=== PATIENT | female | born 1965 | race Caucasian/White ===

== ENCOUNTER 2018-08-05 04:01 | Emergency (ER) | payer OTHER ==
[~2018-08-05] VITALS: Ht 160 cm; Wt 81.7 kg
[~2018-08-05 04:01] MED LIST: AMITRIPTYLINE H25 M2 PO; BENADRYL25 MG PO; BUSPIRONE HCL10 MG PO; CARAFATE 1 GM TA1 G1 PO; LIORESAL 10 MG10 MG PO; NEURONTIN600 MG PO; NEXIUM40 MG PO; ONDANSETRON HCL4 M2 PO; PERCOCET 5-3251 EACH PO; REQUIP XL2 MG PO; SINGULAIR 10 MG10 M1 PO; VENLAFAXIN75 MG/1 T2 PO; VISTARIL 25 MG25 M1 PO; ZANTAC 150MG T150 MG PO
[2018-08-05] MEDS ORDERED: LOSARTAN (04:15)
[2018-08-05] MEDS ORDERED: BUPROPION (04:15)
[2018-08-05 05:47] VITALS: BP 142/80
== END 2018-08-05 05:40 | disposition home or self-care (01) ==
LOC: M.ERS 04:01
DX: S91.202A Unspecified open wound of left great toe with damage to nail, initial encounter (principal); I10 Essential (primary) hypertension; E11.9 Type 2 diabetes mellitus without complications; Z88.8 Allergy status to other drugs, medicaments and biological substances; Z88.0 Allergy status to penicillin; Z96.653 Presence of artificial knee joint, bilateral; Z88.1 Allergy status to other antibiotic agents; Z98.890 Other specified postprocedural states; W22.8XXA Striking against or struck by other objects, initial encounter; Y92.89 Other specified places as the place of occurrence of the external cause; Y93.89 Activity, other specified; Y99.8 Other external cause status

== ENCOUNTER 2018-10-12 14:53 | Emergency (ER) | payer OTHER ==
[~2018-10-12] VITALS: Ht 160 cm; Wt 86.2 kg
[~2018-10-12 14:53] MED LIST changes: +BUPROPION; +LOSARTAN
[2018-10-12] MEDS ORDERED: ACYCLOVIR 400400 MG PO (15:11)
[2018-10-12] MEDS ORDERED: DULERA 200 MCG/13 GM INH (15:12)
[2018-10-12] MEDS ORDERED: FLONASE 0.05%50 MCG NASAL (15:12)
[2018-10-12] MEDS ORDERED: LIORESAL 10 MG10 MG PO (15:12)
[2018-10-12] MEDS ORDERED: LASIX 20 MG TAB20 MG PO (15:12)
[2018-10-12] MEDS ORDERED: NEURONTIN300 MG PO (15:13)
[2018-10-12] MEDS ORDERED: HYDROXYZINE HCL25 M1 PO (15:14)
[2018-10-12] MEDS ORDERED: IPRATROPIUM BRO30 ML INH (15:15)
[2018-10-12] MEDS ORDERED: NEXIUM40 MG PO (15:16)
[2018-10-12] MEDS ORDERED: PROAIR HFA8.5 GM PO (15:17)
[2018-10-12] MEDS ORDERED: TRAZODONE HCL50 MG PO (15:18)
[2018-10-12] MEDS ORDERED: SPIRIVA18 MCG INH (15:18)
[2018-10-12] MEDS ORDERED: VOLTAREN GEL 1100 G2 TOP (15:19)
[2018-10-12] MEDS ORDERED: ZANTAC 150MG T150 MG PO (15:19)
[2018-10-12] MEDS ORDERED: WELLBUTRIN 75 M75 M1 PO (15:19)
[2018-10-12] MEDS ORDERED: ONDANSETRON HCL4 M2 PO (15:20)
[2018-10-12] MEDS ORDERED: HYDROCHLOROTH12.5 M1 PO (15:32)
[2018-10-12] MEDS ORDERED: BENICAR20 MG PO (15:32)
[2018-10-12] MEDS ORDERED: PREDNISONE 10 M10 M1 PO (15:33)
[2018-10-12 15:57] LABS: ABSOLUTE LYMPHOCYTES 3.1 thou/uL (0.8-5.3); ABSOLUTE MONOCYTES 0.9 thou/uL (0.0-1.2); ABSOLUTE NEUTROPHILS 3.6 thou/uL (1.6-8.1); BASOPHILS 0.4 %; EOSINOPHILS 0.4 %; HEMATOCRIT 33.4 % (37.0-47.0); HEMOGLOBIN 11.2 gm/dL (12.0-15.0); LYMPHOCYTES 39.9 %; MCH 33.7 pg (26.0-34.0); MCHC 33.5 g/dL (28.0-37.0); MCV 100.4 fL (80.0-100.0); MPV 7.7 fl. (7.2-11.1); NUCLEATED RBCS 0 /100WBC; PLATELET COUNT* 343 thou/uL (150-400); POLYS 47.3 %; RBC 3.33 mil/uL (4.20-5.00); RDW-CV 14.3 % (10.5-14.5); WBC 7.7 thou/uL (4.0-11.0)
[2018-10-12 16:06] LABS: CALCIUM 8.1 mg/dL (8.5-10.1); CREATININE 1.5 mg/dL (0.6-1.3)
[2018-10-12 16:10] LABS: TOTAL BILIRUBIN 0.2 mg/dL (<0.1-1.0); TOTAL PROTEIN 6.8 g/dL (6.4-8.2)
[2018-10-12] MEDS ORDERED: PERCOCET 7.5-31 EACH PO (17:29)
[2018-10-12 17:45] VITALS: BP 135/69
== END 2018-10-12 17:46 | disposition home or self-care (01) ==
LOC: M.ERS 14:53
PROVIDERS: Personal Emergency Response Attendant
DX: G89.29 Other chronic pain (principal); M54.5 Low back pain; I10 Essential (primary) hypertension; E11.9 Type 2 diabetes mellitus without complications; Z88.1 Allergy status to other antibiotic agents; Z88.0 Allergy status to penicillin; Z88.7 Allergy status to serum and vaccine; Z88.5 Allergy status to narcotic agent; Z91.012 Allergy to eggs; Z88.8 Allergy status to other drugs, medicaments and biological substances; Z90.710 Acquired absence of both cervix and uterus; Z98.890 Other specified postprocedural states

== ENCOUNTER 2018-10-21 19:15 | Emergency (ER) | payer OTHER ==
[~2018-10-21] VITALS: Ht 160 cm; Wt 86.2 kg
[~2018-10-21 19:15] MED LIST changes: +ACYCLOVIR 400400 MG PO; +BENICAR20 MG PO; +DULERA 200 MCG/13 GM INH; +FLONASE 0.05%50 MCG NASAL; +HYDROCHLOROTH12.5 M1 PO; +HYDROXYZINE HCL25 M1 PO; +IPRATROPIUM BRO30 ML INH; +LASIX 20 MG TAB20 MG PO; +NEURONTIN300 MG PO; +PERCOCET 7.5-31 EACH PO; +PREDNISONE 10 M10 M1 PO; +PROAIR HFA8.5 GM PO; +SPIRIVA18 MCG INH; +TRAZODONE HCL50 MG PO; +VOLTAREN GEL 1100 G2 TOP; +WELLBUTRIN 75 M75 M1 PO
[2018-10-21 19:40] LABS: ABSOLUTE LYMPHOCYTES 3.2 thou/uL (0.8-5.3); ABSOLUTE MONOCYTES 1.4 thou/uL (0.0-1.2); ABSOLUTE NEUTROPHILS 6.4 thou/uL (1.6-8.1); BASOPHILS 0.2 %; EOSINOPHILS 0.3 %; HEMATOCRIT 33.5 % (37.0-47.0); HEMOGLOBIN 11.3 gm/dL (12.0-15.0); LYMPHOCYTES 29.2 %; MCH 34.3 pg (26.0-34.0); MCHC 33.8 g/dL (28.0-37.0); MCV 101.6 fL (80.0-100.0); MONOCYTES 12.3 %; MPV 8.1 fl. (7.2-11.1); NUCLEATED RBCS 0 /100WBC; PLATELET COUNT* 360 thou/uL (150-400); RBC 3.29 mil/uL (4.20-5.00); RDW-CV 14.8 % (10.5-14.5); WBC 11.1 thou/uL (4.0-11.0)
[2018-10-21 19:52] LABS: CALCIUM 8.6 mg/dL (8.5-10.1); CREATININE 1.6 mg/dL (0.6-1.3); POTASSIUM 3.1 mmol/L (3.5-5.1)
[2018-10-21 19:56] LABS: ALBUMIN 3.2 g/dL (3.4-5.0); TOTAL BILIRUBIN 0.2 mg/dL (<0.1-1.0); TOTAL PROTEIN 7.1 g/dL (6.4-8.2)
[2018-10-21 21:11] LABS: URINE BILIRUBIN NEGATIVE (Negative); URINE BLOOD NEGATIVE (Negative); URINE CLARITY CLEAR; URINE COLOR YELLOW; URINE GLUCOSE-RANDOM NEGATIVE (Negative); URINE KETONES NEGATIVE (Negative); URINE LEUKOCYTES-REFLEX NEGATIVE (Negative); URINE NITRITE-REFLEX NEGATIVE (Negative); URINE PROTEIN NEGATIVE (Negative); URINE UROBILINOGEN 0.2 E.U./dl (0.2-1.0)
[2018-10-21 21:18] LABS: AMP/METHAMP Negative (Negative); BARBITURATES Negative (Negative); BENZODIAZEPINES Negative (Negative); COCAINE Negative (Negative); METHADONE Negative (Negative); OPIATES POSITIVE (Negative); PCP Negative (Negative); THC Negative (Negative)
[2018-10-21] MEDS ORDERED: PERCOCET 7.5-31 EACH PO (22:36)
[2018-10-21 22:46] VITALS: BP 136/81
--- NOTE | 2018-10-22 10:21 | EKG ---
[place] [address] ELECTROCARDIOGRAM REPORT Name: KESHAV PINK Room: [facility]#: [id number] Admission: 10/21/18 Attend Phys: Discharge: 10/21/18 Date of : 61 Report #: [id number] THIS REPORT FOR: //name// [facility] ED Test Date: 2018-10-21 Test Time: 20:20:19 Pat Name: KESHAV PINK Department: Room: Gender: F Linking Machine Operator: : 1965 Requested By: Camila Vazquez Order Number: [id number] MD: Rc Mulligan Measurements Intervals [place] Rate: 87 P: -37 WV: 134 QRS: -14 QRSD: 100 T: 12 QT: 373 QTc: 449 Interpretive Statements Sinus rhythm No previous ECG available for comparison Electronically Signed On 10-22-2018 10:21:01 CDT by Rc Mulligan [email or web address] <ELECTRONICALLY SIGNED> By: Rc Mulligan MD, [facility] 10/22/18 1021 19 19 Rc Mulligan MD, FACC /EPI
== END 2018-10-21 22:47 | disposition home or self-care (01) ==
LOC: M.ERS 19:15
PROVIDERS: Emergency Medicine
DX: M54.5 Low back pain (principal); M25.571 Pain in right ankle and joints of right foot; R60.0 Localized edema; I10 Essential (primary) hypertension; E11.9 Type 2 diabetes mellitus without complications; Z98.890 Other specified postprocedural states; Z90.710 Acquired absence of both cervix and uterus; Z88.0 Allergy status to penicillin; Z88.1 Allergy status to other antibiotic agents; Z88.7 Allergy status to serum and vaccine; Z88.8 Allergy status to other drugs, medicaments and biological substances; Z91.012 Allergy to eggs; Z79.899 Other long term (current) drug therapy

== ENCOUNTER 2018-11-18 17:36 | Emergency (ER) | payer OTHER ==
[~2018-11-18] VITALS: Ht 160 cm; Wt 86.2 kg
[2018-11-18] MEDS ORDERED: [UNRECOGNIZED DRUG - OTHER] (17:49)
[2018-11-18] MEDS ORDERED: QVAR REDIHALE10.6 G1 INH (17:50)
[2018-11-18] MEDS ORDERED: TRAMADOL 50 MG50 MG PO (17:50)
[2018-11-18 18:45] LABS: ABSOLUTE EOSINOPHILS 0.1 thou/uL (0.0-0.7); ABSOLUTE LYMPHOCYTES 1.9 thou/uL (0.8-5.3); ABSOLUTE MONOCYTES 0.7 thou/uL (0.0-1.2); ABSOLUTE NEUTROPHILS 3.3 thou/uL (1.6-8.1); BASOPHILS 0.3 %; EOSINOPHILS 1.1 %; HEMATOCRIT 30.7 % (37.0-47.0); HEMOGLOBIN 10.2 gm/dL (12.0-15.0); LYMPHOCYTES 31.2 %; MCH 34.2 pg (26.0-34.0); MCHC 33.4 g/dL (28.0-37.0); MCV 102.5 fL (80.0-100.0); MONOCYTES 11.8 %; MPV 8.3 fl. (7.2-11.1); NUCLEATED RBCS 0 /100WBC; PLATELET COUNT* 257 thou/uL (150-400); POLYS 55.6 %; RBC 2.99 mil/uL (4.20-5.00); RDW-CV 14.5 % (10.5-14.5)
[2018-11-18 18:53] LABS: ANION GAP 6 mmol/L (7-16); BUN 15 mg/dL (7-18); CALCIUM 7.9 mg/dL (8.5-10.1); CHLORIDE 106 mmol/L (98-107); CO2 29 mmol/L (21-32); GLUCOSE 80 mg/dL (70-99); SODIUM 141 mmol/L (136-145)
[2018-11-18 18:54] LABS: POTASSIUM 2.7 mmol/L (3.5-5.1)
[2018-11-18 19:05] LABS: ALBUMIN 2.9 g/dL (3.4-5.0); ALKALINE PHOSPHATASE 175 U/L (46-116); SGOT 26 U/L (15-37); SGPT 56 U/L (30-65); TOTAL BILIRUBIN 0.1 mg/dL (<0.1-1.0); TOTAL PROTEIN 6.3 g/dL (6.4-8.2); TROPONIN-I LEVEL <0.06 ng/mL (<0.06)
[2018-11-18] MEDS ORDERED: GLUTOSE GEL 1515 G1 PO (19:19)
[2018-11-18] MEDS ORDERED: HYDROXYZINE HCL25 M2 PO (19:21)
[2018-11-18 20:54] VITALS: BP 144/86
--- NOTE | 2018-11-19 16:12 | EKG ---
[place] [address] ELECTROCARDIOGRAM REPORT Name: JOESPHTHAIKESHAV Jessica [id number] Admission: 11/18/18 Attend Phys: Discharge: 11/18/18 Date of : 61 Report #: [id number] THIS REPORT FOR: //name// [facility] ED Test Date: 2018-11-18 Test Time: 19:18:37 Pat Name: KESHAV PINK Department: Room: Gender: F Pulmonologist/Intensivist: [place] : 1965 Requested By: Andreia Sena Order Number: [id number] MD: Gautam Caballero Measurements Intervals [place] Rate: 77 P: -15 CO: 152 QRS: -13 QRSD: 104 T: 54 QT: 403 QTc: 457 Interpretive Statements Sinus rhythm Compared to ECG 10/21/2018 20:20:19 No significant changes Electronically Signed On 11-19-2018 16:11:56 CDT by Gautam Caballero [email or web address] <ELECTRONICALLY SIGNED> By: Gautam Caballero MD, [facility] 11/19/18 1611 1918 191 Gautam Caballero MD, FACC /EPI
== END 2018-11-18 20:56 | disposition home or self-care (01) ==
LOC: M.ERS 17:36
PROVIDERS: Nurse Practitioner Family
DX: E87.6 Hypokalemia (principal); I12.9 Hypertensive chronic kidney disease with stage 1 through stage 4 chronic kidney disease, or unspecified chronic kidney disease; E11.22 Type 2 diabetes mellitus with diabetic chronic kidney disease; N18.9 Chronic kidney disease, unspecified; M79.602 Pain in left arm; E11.649 Type 2 diabetes mellitus with hypoglycemia without coma; Z98.51 Tubal ligation status; Z90.710 Acquired absence of both cervix and uterus; Z79.899 Other long term (current) drug therapy; Z88.1 Allergy status to other antibiotic agents; Z88.0 Allergy status to penicillin; Z88.5 Allergy status to narcotic agent; Z88.7 Allergy status to serum and vaccine; Z91.012 Allergy to eggs

== ENCOUNTER 2019-04-11 15:14 | Observation (INO) | payer OTHER ==
[~2019-04-11] VITALS: Ht 160 cm; Wt 82.1 kg
[~2019-04-11 15:14] MED LIST changes: +GLUTOSE GEL 1515 G1 PO; +HYDROXYZINE HCL25 M2 PO; +QVAR REDIHALE10.6 G1 INH; +TRAMADOL 50 MG50 MG PO; +[UNRECOGNIZED DRUG - OTHER]
[2019-04-11 15:18] VITALS: BP 141/81
--- NOTE | 2019-04-11 16:25 | NUR ---
PT BROUGHT BACK TO ED ROOM FROM WAITING AREA.
--- NOTE | 2019-04-11 17:00 | NUR ---
DURING ASSESSMENT, PT ASKED NURSE IF SHE COULD GET A BREATHING TREATMENT BECAUSE "I CAN'T SEEM TO CATCH MY BREATH RIGHT NOW". PT RESPIRATIONS EVEN AND UNLABORED. O2 SAT 99% ON ROOM AIR.
[2019-04-11 17:20] LABS: ABSOLUTE EOSINOPHILS 0.1 thou/uL (0.0-0.7); ABSOLUTE LYMPHOCYTES 1.9 thou/uL (0.8-5.3); ABSOLUTE MONOCYTES 0.7 thou/uL (0.0-1.2); ABSOLUTE NEUTROPHILS 4.4 thou/uL (1.6-8.1); BASOPHILS 0.3 %; EOSINOPHILS 0.8 %; HEMATOCRIT 33.4 % (37.0-47.0); LYMPHOCYTES 27.2 %; MCH 32.7 pg (26.0-34.0); MCHC 32.9 g/dL (28.0-37.0); MCV 99.2 fL (80.0-100.0); MONOCYTES 10.3 %; MPV 8.7 fl. (7.2-11.1); NUCLEATED RBCS 0 /100WBC; PLATELET COUNT* 300 thou/uL (150-400); POLYS 61.4 %; RBC 3.37 mil/uL (4.20-5.00); RDW-CV 14.9 % (10.5-14.5); WBC 7.1 thou/uL (4.0-11.0)
[2019-04-11 17:30] LABS: CALCIUM 8.3 mg/dL (8.5-10.1); CREATININE 1.3 mg/dL (0.6-1.3); POTASSIUM 3.4 mmol/L (3.5-5.1)
[2019-04-11 17:34] LABS: TOTAL BILIRUBIN 0.2 mg/dL (<0.1-1.0); TOTAL PROTEIN 7.3 g/dL (6.4-8.2)
--- NOTE | 2019-04-11 18:57 | NUR ---
REPORT GIVEN TO BRODY ASHER WHO IS TO ASSUME PT CARE AT THIS TIME.
--- NOTE | 2019-04-11 20:18 | NUR ---
PT VERY ARGUMENTATIVE WHILE STAFF ATTEMPTING TO START IV ACCESS. PT TELLING STAFF WHERE TO INSERT IV. PT INFORMED THAT AREAS THAT SHE WANTS IV STARTED ARE NOT SUFFICIENT FOR IV ACCESS. THIS NURSE SAT AT PATIENT'S BEDSIDE AND LISTENED TO PATIENT'S CONCERNS FOR IV INSERTION. PATIENT AGREED TO ALLOW ME TO INSERT IV IN RIGHT HAND. PATIENT THEN STARTED YELLING AND CURSING AT STAFF. PATIENT ASKED TO NOT USE DISRESPECTFUL LANGUAGE TOWARDS STAFF AND I ONCE AGAIN EXPLAINED THAT STAFF IS HERE TO HELP HER AND TO TAKE CARE OF HER.
[2019-04-11 20:20] VITALS: BP 144/82
[2019-04-11 20:32] LABS: URINE BILIRUBIN NEGATIVE (Negative); URINE BLOOD NEGATIVE (Negative); URINE CLARITY SL CLOUDY; URINE COLOR YELLOW; URINE GLUCOSE-RANDOM NEGATIVE (Negative); URINE KETONES NEGATIVE (Negative); URINE NITRITE-REFLEX NEGATIVE (Negative); URINE PROTEIN NEGATIVE (Negative); URINE UROBILINOGEN 0.2 E.U./dl (0.2-1.0)
[2019-04-11 20:33] LABS: URINE LEUKOCYTES-REFLEX 2+ (Negative)
[2019-04-11 20:41] LABS: MUCUS 4-6 Moderate strn/LPF (None Seen); SQUAMOUS >10 Many /LPF (0-3)
[2019-04-11 20:42] LABS: BACTERIA-REFLEX >30 Many /HPF (None Seen); CRYSTALS None Seen /LPF (None Seen); HYALINE CASTS 0-3 Few /LPF (None Seen); URINE RBC 0-2 Rare /HPF (0-2); URINE WBC-REFLEX 0-5 Rare /HPF (0-5)
[2019-04-11] MEDS ORDERED: SENNA PLUS TAB1 EACH PO (21:03)
[2019-04-11] MEDS ORDERED: POTASSIUM20 PO (21:03)
[2019-04-11] MEDS ORDERED: OLMESARTAN MEDO20 MG PO (21:20)
[2019-04-11] MEDS ORDERED: KEFLEX500 M2 PO (21:25)
[2019-04-11] MEDS ORDERED: KEFLEX500 M1 PO (21:27)
[2019-04-11 22:00] VITALS: BP 156/83
[2019-04-12] VITALS: BP 113/81
--- NOTE | 2019-04-12 03:31 | NUR ---
RECEIVED REPORT FROM IT PORTFOLIO MANAGERBRODY ASHER AT 1954. PT ARRIVED TO UNIT VIA BED AT 2019. PT AAOX4. ORIENTED TO ROOM AND CALL LIGHT. EMBOSSING UNIT OPERATOR IN PLACE, TRACING SINUS RHYTHM. PT IRRITABLE AND DEMANDING AND THREATENING TO LEAVE AMA IF MEDICATIONS/CARE NOT PERFORMED ACCORDING TO PATIENT'S EXPECTATIONS. PT EDUCATED ON HIGH FALL PRECAUTIONS. PT REFUSED BED ALARM. THREATENING TO LEAVE AMA IF BED ALARM TURNED ON. PT EDUCATED ON REASON FOR BED ALARM. PT CONTINUED TO REFUSE. CALL LIGHT REMAINS WITHIN REACH. PT AGREED TO USE CALL LIGHT PRIOR TO GETTING OUT OF BED. PRN PAIN MEDICATION ADMINISTERED THIS SHIFT, SEE EMAR FOR DOCUMENTATION.
[2019-04-12 04:00] VITALS: BP 142/70
[2019-04-12 04:58] LABS: ALKALINE PHOSPHATASE 239 U/L (46-116); ANION GAP 12 mmol/L (7-16); BUN 7 mg/dL (7-18); CALCIUM 8.1 mg/dL (8.5-10.1); CHLORIDE 105 mmol/L (98-107); CHOLESTEROL 156 mg/dL (<200); CO2 21 mmol/L (21-32); CREATININE 1.4 mg/dL (0.6-1.3); GLUCOSE 117 mg/dL (70-99); HDL CHOLESTEROL 71 mg/dL (>40); LDL CHOLESTEROL 69 mg/dL (<100); POTASSIUM 3.6 mmol/L (3.5-5.1); SGOT 20 U/L (15-37); SGPT 49 U/L (30-65); SODIUM 138 mmol/L (136-145); TC:HDL 2.2 Ratio (Not establshd); TOTAL BILIRUBIN 0.3 mg/dL (<0.1-1.0); TOTAL PROTEIN 7.1 g/dL (6.4-8.2); TRIGLYCERIDE 82 mg/dL (<150); VLDL 16 mg/dL (<40)
[2019-04-12 05:03] LABS: SERUM ASSESSMENT CLEAR
[2019-04-12 07:26] LABS: HEMATOCRIT 32.9 % (37.0-47.0); HEMOGLOBIN 10.9 gm/dL (12.0-15.0); MCH 32.9 pg (26.0-34.0); MCHC 33.2 g/dL (28.0-37.0); MPV 9.2 fl. (7.2-11.1); RBC 3.32 mil/uL (4.20-5.00); RDW-CV 14.7 % (10.5-14.5); WBC 7.9 thou/uL (4.0-11.0)
[2019-04-12 08:00] VITALS: BP 130/79
[2019-04-12] MEDS ORDERED: WELLBUTRIN 75 M75 M1 PO (10:52)
[2019-04-12 11:48] VITALS: BP 150/69
[2019-04-12] MEDS ORDERED: BACTRIM DS TAB1 EAC1 PO (13:52)
--- NOTE | 2019-04-12 14:47 | EKG ---
[place] [address] ELECTROCARDIOGRAM REPORT Name: KESHAV PINK Room: [address] ADM IN .R.#: [id number] Admission: 04/11/19 Attend Phys: Maritza Bray MD Discharge: Date of : 61 Report #: [id number] THIS REPORT FOR: //name// [facility] ED Test Date: 2019-04-11 Test Time: 16:45:24 Pat Name: KESHAV PINK Department: Room: [facility] Gender: F Motion Picture Set Worker: : 1965 Requested By: Noah Huerta Order Number: [id number] MD: Chacorta Wright Measurements Intervals [place] Rate: 84 P: 40 IN: 171 QRS: -4 QRSD: 104 T: 47 QT: 377 QTc: 446 Interpretive Statements Sinus rhythm Compared to ECG 11/18/2018 19:18:37 No significant changes Electronically Signed On 04-12-2019 14:47:40 WATERPROOF MATERIAL FOLDER by Chacorta Wright [email or web address] <ELECTRONICALLY SIGNED> By: Chacorta Wright MD, [facility] 04/12/19 1447 1645 1645 Chacorta Wright MD, FACC /EPI
[2019-04-12 15:21] VITALS: BP 150/69
--- NOTE | 2019-04-12 16:29 | NUR ---
ORDERS RECEIVED FOR P.T. EVAL AND TREAT. UPON CHECKING UPON PT, NSG REPORTS PT PREPARING TO BE DISCHARGED HOME FROM HOSPITAL.
--- NOTE | 2019-04-12 17:06 | NUR ---
ASSUMED CARE OF PT APPROX 0730. REASSESSMENT COMPLETED CHARTED. MEDICATIONS GIVEN CHARTED. THE PT WAS VERY ANXIOUS. PT DISCONTINUED HER IV THIS AM THAT WAS IN HER RIGHT WRIST, PT STATED,"IT BLEW OUT." I ASKED HER IF SHE MEANT THAT SHE TOOK IT OUT. PT STATED WELL IT WASN'T ANY GOOD, IT WAS IN MY RIGHT WRIST AND I USE MY RIGHT HAND IT WAS IN THE WAY. THE PT WAS WANTING TO HAVE HER DOGS COME TO THE HOSPITAL AND STAY WITH HER FOR THE DURTION OF HER STAY, THE PT STATED,"HER DOGS CAN USE THE RESTROOM ON PUPPY PADS." THE PT WAS EDUCATED ABOUT THE HOSPITALS POLICY. THE PT WAS TOLD THAT SHE WOULD HAVE TO HAVE AN ADULT HERE WITH THE ANIMALS TO BE ABLE TO TAKE BACK HOME AND THEY COULD ONLY BE ABLE TO VISIT IF THEY MET HOSPITAL POLICY. THE PT WAS UNHAPPY AND DEMANED TO SPEAK WITH THE CHARGE NURSE. THE CHARGE NURSE WAS NOTIFIED AND SPOKE TO THE PT. THE PT WAS STILL NOT SATISFIED WITH WHAT SHE WAS TOLD. [facility] AND SHE CONTACTED THE HOSPITAL INTERMEDIATE ACCOUNTANT. THE HOSPITAL INTERMEDIATE ACCOUNTANT SPOKE WITH THE PT ABOUT THE HOSPITALS POLICY ON PETS. THE DR WAS NOTIFIED. THE PT DID NOT MENTION THE PETS FOR THE REMAINDER OF HER STAY. THE PT WAS GIVEN THE DOSE OF PAIN MEDICATION THE PT NORMALLY TAKES AT HOME WITH HER MORNING MEDICATIONS. THE DR WAS IN THE PTS ROOM WHILE MEDICATIONS WERE BEING ADMINISTERED. THE PT ASKED THE DR IF SHE COULD BE ABLE TO HAVE IV PAIN MEDICATION, THE DR TOLD HER SHE WOULD REVIEW HER MEDICATIONS. NEW IV WAS PLACED IN THE PTS LEFT WRIST APPROX 1330. THE NEUROLOGIST SEEN THE PT AND RECOMMENNED THE PT BE SEEN BY AN OUT PT NEUROLOGIST. THE DR PUT IN AN ORDER FOR IV FENTANYL. THE MEDICATION WAS OFFERED TO THE PT AND SHE REFUSED THE MEDICATION STATING,"FENTANYL DOESN'T WORK FOR ME." THE DR WAS NOTIFIED AND THE DR WANTED THE PT TO RESUME ORAL PAIN MEDICATION. THE DR ALSO PUT IN ORDERS FOR THE PT TO BE DISCHARGED AFTER THE NERUOLOGIST SEEN THE PT. I WENT TO DISCUSS THE PENDING DISCHARGE WITH THE PT AND ALSO OFFER THE PT TO TAKE PO PAIN MEDICATION. THE PT STATED SHE DID NOT WANT PO PAIN MEDICATION SHE WANTED TO TAKE IV PAIN MEDICATION. I TOLD HER WHAT THE DR WANTED HER TO TAKE. THE PT THEN ASKED IF COULD SHE SEE THE DIRECTOR OF SERVICES WHILE IN THE HOSPITAL. THE PT WAS EDUCATED THAT SHE WAS NOT HERE FOR A CARDIAC ISSUE AND SHE WOULD HAVE TO SEE HER DIRECTOR OF SERVICES ON AN OUT PT BASIS. I ALSO SPOKE WITH THE PT ABOUT THE RECOMMENDATION OF THE NEUROLOGIST. PT WAS EDUCATED ABOUT CARE AND TOLD THE DR DISCHARGED HER BECAUSE SHE WAS STABLE. SHE GOT VERY ANGRY AND BEGAN TO YELL AT ME DEMANDING TO SPEAK TO SOMEONE ELSE ABOUT BEING ABLE TO STAY IN THE HOSPITAL. KRISTINAN WAS NOTIFIED OF THE PTS CONCERN AND THE DR STATED THAT THE PT WAS NOT ADMITED FOR A CARDIAC ISSUE AND THE PT DID NOT HAVE ANY CARDIAC CONCERNS WHEN SHE WAS ASSESSED IN THE MORNING. THE DR STATED THE PT IS STABLE TO BE DISCHARGED. I WENT TO MY CHARGE NURSE SO I COULD HAVE A WITNESS. THE PT REFUSED TO HAVE DISCHARGE TEACHING COMPLETED, A COPY OF THE PTS DISCHARGE AND MEDICATION INFOMATION FOR HER NEW PRESCRITION WAS GIVEN TO HER. THE PT DISCONTINUED HER IV THAT WAS PLACED IN HER LEFT WRIST. PT WAS REFUSING TO LEAVE. ROD CUP FILLER WAS CALLED. LIZBET GOODRICH, ROD CUP FILLER, NURSE ASSISSANT AND I WERE IN THE ROOM WITH THE PT SHE REFUSED TO SIGN HER DISCHARGE PAPERWORK AGAIN AFTER THE ROD CUP FILLER SUGESTED SHE SHOULD HAVE TEACHING DONE AND SIGN HER PAPERWORK. SHE WAS STILL UPSET ABOUT NOT GETTING IV PAIN MEDICATION AND I EXPLAINED TO HER THE DOCTORS ORDERS, I TOLD HER I WAS NOT GOING TO GO BACK AND FORTH WITH HER ABOUT IT. THE CHARGE NURSE TOLD HER SHE IS BEING DISCHARGED AND SHE NEEDED TO LEAVE. SHE REFUSED TO TAKE A WHEELCHAIR TO HER VEHICLE AND REFUSED TO HAVE AND HELP BY STAFF TO CARRY HER BELONGINGS OUT. THE NURSING ASSISANT WAS WALKING WITH HER TO THE ELEVATOR AND THE ROD CUP FILLER TOLD THE JUVENILE PROBATION OFFICER TO MAKE SURE SHE GOT TO HER VEHICLE SAFTELY. THE PT TURNED AROUND AND STATED,"IM RIGHT HERE IF YOU ARE GOING TO TALK ABOUT ME IM RIGHT HERE." THE ROD CUP FILLER WENT TO SPEAK TO THE PT AND TOLD HER THAT IF SHE WAS NOT ABLE TO LEAVE WITH JUST THE NURSING ASSIANT THEN SHE WAS GOING TO HAVE TO GO WITH HER AND CALL SECURITY. THE PT THEN LEFT WITH THE NURSING ASSISANT AND WAS ESCORTED TO HER VEHICLE APPROX 1645. SHE HAD ALL OF HER BELONGINGS WITH HER.
== END 2019-04-12 16:48 | disposition home or self-care (01) ==
LOC: M.ERS 15:14 → M.TBA-ER 18:44 → M.2W 18:44
PROVIDERS: Emergency Medicine Emergency Medical Services; Personal Emergency Response Attendant; ADMIT Internal Medicine
DX: R42 Dizziness and giddiness (principal); K92.1 Melena; G89.29 Other chronic pain; I10 Essential (primary) hypertension; E11.40 Type 2 diabetes mellitus with diabetic neuropathy, unspecified

== ENCOUNTER 2019-10-02 21:52 | Inpatient (IN) | payer OTHER ==
[~2019-10-02] VITALS: Ht 160 cm; Wt 74.4 kg
[~2019-10-02 21:52] MED LIST changes: +BACTRIM DS TAB1 EAC1 PO; +KEFLEX500 M1 PO; +KEFLEX500 M2 PO; +OLMESARTAN MEDO20 MG PO; +POTASSIUM20 PO; +SENNA PLUS TAB1 EACH PO
[2019-10-02 22:15] VITALS: BP 95/59
[2019-10-02 23:24] LABS: ABSOLUTE LYMPHOCYTES 1.3 thou/uL (0.8-5.3); ABSOLUTE MONOCYTES 0.8 thou/uL (0.0-1.2); ABSOLUTE NEUTROPHILS 4.7 thou/uL (1.6-8.1); BASOPHILS 0.2 %; EOSINOPHILS 0.2 %; HEMATOCRIT 27.2 % (37.0-47.0); HEMOGLOBIN 9.2 gm/dL (12.0-15.0); LYMPHOCYTES 19.4 %; MCH 33.7 pg (26.0-34.0); MCHC 33.9 g/dL (28.0-37.0); MCV 99.4 fL (80.0-100.0); MONOCYTES 11.6 %; MPV 8.1 fl. (7.2-11.1); NUCLEATED RBCS 0 /100WBC; PLATELET COUNT* 342 thou/uL (150-400); POLYS 68.6 %; RBC 2.74 mil/uL (4.20-5.00); RDW-CV 15.5 % (10.5-14.5); WBC 6.9 thou/uL (4.0-11.0)
[2019-10-02 23:34] LABS: CALCIUM 7.6 mg/dL (8.5-10.1); CREATININE 2.9 mg/dL (0.6-1.3)
[2019-10-02 23:36] LABS: POTASSIUM 2.5 mmol/L (3.5-5.1)
[2019-10-02 23:38] LABS: APTT 23.9 Seconds (25.0-31.3); PROTIME 10.1 Seconds (9.20-11.50)
[2019-10-02 23:45] LABS: ALBUMIN 2.9 g/dL (3.4-5.0); TOTAL BILIRUBIN 0.2 mg/dL (<0.1-1.0); TOTAL PROTEIN 6.5 g/dL (6.4-8.2)
--- NOTE | 2019-10-03 00:05 | NUR ---
SYLVIE NOTIFIED UPON PT RETURN FROM CT AND THAT PT IS IN THE RESTROOM
[2019-10-03 04:00] VITALS: BP 118/61
[2019-10-03 05:13] LABS: URINE BILIRUBIN NEGATIVE (Negative); URINE BLOOD 3+ (Negative); URINE CLARITY SL CLOUDY; URINE GLUCOSE-RANDOM NEGATIVE (Negative); URINE KETONES NEGATIVE (Negative); URINE LEUKOCYTES-REFLEX 1+ (Negative); URINE NITRITE-REFLEX NEGATIVE (Negative); URINE PROTEIN 1+ (Negative); URINE UROBILINOGEN 0.2 E.U./dl (0.2-1.0)
[2019-10-03 05:15] LABS: URINE COLOR AMBER
[2019-10-03 05:28] LABS: AMORPHOUS URATES Moderate /LPF (None Seen); BACTERIA-REFLEX >30 Many /HPF (None Seen); CASTS None Seen /LPF (None Seen); MUCUS 4-6 Moderate strn/LPF (None Seen); SQUAMOUS 0-3 Few /LPF (0-3); TRANSITIONAL EPITHEL CELL 0-3 Few /LPF (None Seen); URINE WBC-REFLEX 6-15 Few /HPF (0-5)
[2019-10-03 08:00] VITALS: BP 112/76
[2019-10-03 08:15] VITALS: BP 112/76
--- NOTE | 2019-10-03 10:33 | EKG ---
[place] [address] ELECTROCARDIOGRAM REPORT Name: KESHAV PINK Room: [place] [address] ADM IN [facility].#: [id number] Admission: 10/02/19 Attend Phys: Ra Aguirre Discharge: Date of : 61 Date of Service: 10/02/192232 Report #: [id number] THIS REPORT FOR: //name// [facility] ED Test Date: 2019-10-02 Test Time: 22:33:21 Pat Name: KESHAV PINK Department: Room: [facility] Gender: F Waterproofing Supervisor: [place] : 1965 Requested By: Noah Huerta Order Number: [id number] MD: Gautam Caballero Measurements Intervals [place] Rate: 82 P: -35 [place]: 143 QRS: -7 QRSD: 91 T: 33 QT: 393 QTc: 459 Interpretive Statements Sinus rhythm Borderline T abnormalities, anterior leads Compared to ECG 04/11/2019 16:45:24 T-wave abnormality now present Electronically Signed On 10-03-2019 10:31:38 CDT by Gautam Caballero [email or web address] <ELECTRONICALLY SIGNED> By: Gautam Caballero MD, [facility] 10/03/19 1031 2233 2233 Gautam Caballero MD, [facility] /EPI
[2019-10-03 13:37] LABS: ALBUMIN 2.8 g/dL (3.4-5.0); CALCIUM 7.2 mg/dL (8.5-10.1); POTASSIUM 3.9 mmol/L (3.5-5.1); TOTAL BILIRUBIN 0.2 mg/dL (<0.1-1.0); TOTAL PROTEIN 6.2 g/dL (6.4-8.2)
--- NOTE | 2019-10-03 14:20 | NUR ---
PT ARRIVED TO UNIT AT APPROX 0815 VIA CART, PT A&O X4, VSS, RA, PROGRAMMING EQUIPMENT OPERATOR TRACING SINUS RHYTHM, ORIENTED PT TO CALL LIGHT AND ROOM. PTS FRIEND BROUGHT PERSONAL BELONGINGS TO HOSPITAL AND SECURITY INFORMED HOSPITAL STAFF AND PTS FRIEND THAT BELONGINGS WERE NOT ESSENTIAL AND COULD ONLY BE BROUGHT IN WHEN PT WAS DISCHARGING. PT BECAME HIGHLY IRRATE AND STATED SHE WAS LEAVING AMA. THIS NURSE PEREZ VANG EDUCATED PT ON LEAVING AMA. PT REFUSED TO STAY OR SIGN AMA PAPER WORK. IV AND PROGRAMMING EQUIPMENT OPERATOR REMOVED, PT DISCHARGED AT APPROX 1415.
== END 2019-10-03 14:15 | disposition left against medical advice (07) | DRG 640 ==
LOC: M.ERS 21:52 → M.TBA-ER 23:52 → M.2W 23:52
PROVIDERS: Emergency Medicine Emergency Medical Services; ADMIT Internal Medicine; ATTEND Internal Medicine
DX: E87.6 Hypokalemia (principal); N17.0 Acute kidney failure with tubular necrosis; E44.0 Moderate protein-calorie malnutrition; E11.22 Type 2 diabetes mellitus with diabetic chronic kidney disease; Z96.653 Presence of artificial knee joint, bilateral; K21.9 Gastro-esophageal reflux disease without esophagitis; I12.9 Hypertensive chronic kidney disease with stage 1 through stage 4 chronic kidney disease, or unspecified chronic kidney disease; N18.9 Chronic kidney disease, unspecified; E11.40 Type 2 diabetes mellitus with diabetic neuropathy, unspecified; M81.0 Age-related osteoporosis without current pathological fracture; Z53.29 Procedure and treatment not carried out because of patient's decision for other reasons; Z88.0 Allergy status to penicillin; Z88.7 Allergy status to serum and vaccine; Z87.81 Personal history of (healed) traumatic fracture; Z90.710 Acquired absence of both cervix and uterus; Z88.8 Allergy status to other drugs, medicaments and biological substances; Z88.6 Allergy status to analgesic agent; Z88.1 Allergy status to other antibiotic agents; Z91.012 Allergy to eggs; Z68.29 Body mass index [BMI] 29.0-29.9, adult

== ENCOUNTER 2020-09-03 18:11 | Emergency (ER) | payer OTHER ==
[~2020-09-03 18:11] MED LIST changes: +ABILIFY 5 MG TAB5 M1 PO; +CALCIUM500 MG PO; +FLEXERIL PO; +LEXAPRO20 MG PO; +LORAZEPAM 0.50.5 MG PO; +MAGNESIUM400 MG PO; +NOXIFOL-D32500 UNIT PO; +VITAMIN B12-FO1 EAC1 PO; +ZINC PO; -[UNRECOGNIZED DRUG - OTHER]; +[UNRECOGNIZED DRUG - OTHER] IV
== END 2020-09-03 18:27 | disposition left against medical advice (07) ==
LOC: M.ERS 18:11
DX: Z53.21 Procedure and treatment not carried out due to patient leaving prior to being seen by health care provider (principal)

== ENCOUNTER 2020-09-06 13:28 | Emergency (ER) | payer OTHER ==
[~2020-09-06] VITALS: Ht 165.1 cm; Wt 74.8 kg
[2020-09-06 14:39] LABS: ABSOLUTE MONOCYTES 0.5 thou/uL (0.0-1.2); ABSOLUTE NEUTROPHILS 3.6 thou/uL (1.6-8.1); BASOPHILS 0.4 %; EOSINOPHILS 0.5 %; HEMATOCRIT 33.6 % (37.0-47.0); HEMOGLOBIN 11.3 gm/dL (12.0-15.0); LYMPHOCYTES 32.2 %; MCH 33.1 pg (26.0-34.0); MCHC 33.6 g/dL (28.0-37.0); MCV 98.6 fL (80.0-100.0); MONOCYTES 7.5 %; MPV 8.8 fl. (7.2-11.1); NUCLEATED RBCS 0 /100WBC; PLATELET COUNT* 265 thou/uL (150-400); POLYS 59.4 %; RBC 3.41 mil/uL (4.20-5.00); RDW-CV 14.2 % (10.5-14.5); WBC 6.1 thou/uL (4.0-11.0)
[2020-09-06 14:56] LABS: CALCIUM 8.7 mg/dL (8.5-10.1); CREATININE 1.6 mg/dL (0.6-1.3)
[2020-09-06 14:57] LABS: POTASSIUM 2.5 mmol/L (3.5-5.1)
[2020-09-06 15:06] LABS: ALBUMIN 2.5 g/dL (3.4-5.0); MAGNESIUM 2.1 mg/dL (1.8-2.4); TOTAL BILIRUBIN 0.4 mg/dL (<0.1-1.0); TOTAL PROTEIN 6.5 g/dL (6.4-8.2)
[2020-09-06] MEDS ORDERED: MEDROLDOSEPACK PO (16:52)
[2020-09-06] MEDS ORDERED: NORCO5 PO (16:52)
[2020-09-06 17:08] VITALS: BP 133/76
--- NOTE | 2020-09-07 12:46 | EKG ---
[place] [address] ELECTROCARDIOGRAM REPORT Name: JOESPHKESHAV Jessica Room: [facility]#: [id number] Admission: 09/06/20 Attend Phys: Discharge: 09/06/20 Date of : 61 Date of Service: 09/06/20 1523 Report #: [id number] THIS REPORT FOR: //name// [facility] ED Test Date: 2020-09-06 Test Time: 15:23:28 Pat Name: KESHAV PINK Department: Room: Gender: Harvest Field Ticketer: : 1965 Requested By: Andreia Sena Order Number: [id number] MD: Miguelito Love Measurements Intervals [place] Rate: 64 P: 4 MN: 168 QRS: -21 QRSD: 96 T: QT: 466 QTc: 481 Interpretive Statements Sinus rhythm Borderline left axis deviation Borderline T abnormalities, lateral leads Compared to ECG 10/02/2019 22:33:21 No significant changes Electronically Signed On 09-07-2020 12:46:21 CDT by Miguelito Love [email or web address] <ELECTRONICALLY SIGNED> By: Miguelito Love MD, [facility] 09/07/20 1246 1523 1523 Miguelito Loev MD, [facility] /EPI
== END 2020-09-06 17:09 | disposition home or self-care (01) ==
LOC: M.ERS 13:28
PROVIDERS: Nurse Practitioner Family
DX: M54.5 Low back pain (principal); S16.1XXA Strain of muscle, fascia and tendon at neck level, initial encounter; E87.6 Hypokalemia; Z88.0 Allergy status to penicillin; Z88.7 Allergy status to serum and vaccine; Z88.5 Allergy status to narcotic agent; Z88.1 Allergy status to other antibiotic agents; Z88.8 Allergy status to other drugs, medicaments and biological substances; Z91.012 Allergy to eggs; K21.9 Gastro-esophageal reflux disease without esophagitis; Z98.890 Other specified postprocedural states; Z98.51 Tubal ligation status; Z90.710 Acquired absence of both cervix and uterus; Z96.653 Presence of artificial knee joint, bilateral; Z86.14 Personal history of Methicillin resistant Staphylococcus aureus infection; W18.39XA Other fall on same level, initial encounter; Y93.89 Activity, other specified; Y92.89 Other specified places as the place of occurrence of the external cause; Y99.8 Other external cause status

== ENCOUNTER 2020-10-17 21:41 | Observation (INO) | payer OTHER ==
[~2020-10-17] VITALS: Ht 160 cm; Wt 56.0 kg
[~2020-10-17 21:41] MED LIST changes: +MEDROLDOSEPACK PO; +NORCO5 PO
[2020-10-17 21:46] VITALS: BP 112/62
--- NOTE | 2020-10-17 22:03 | NUR ---
PT KEEPS TRYING TO CRAWL OUT OF BED. PT KEEPS STATING SHE WAS SUPPOSE TO BE AT HOME AT 230 WHY HAVENT WE LET HER LEAVE. PT HAS BECOME AGITATED AT THIS TIME
--- NOTE | 2020-10-17 22:15 | NUR ---
PT RIPPED OUT IV AND TOOK OFF MONITORING EQUIPMENT. PT REFUSING TO PUT IT BACK ON.
[2020-10-17 22:32] LABS: HEMATOCRIT 35.6 % (37.0-47.0); MCHC 33.6 g/dL (28.0-37.0); MCV 98.2 fL (80.0-100.0); MPV 8.4 fl. (7.2-11.1); RBC 3.63 mil/uL (4.20-5.00); RDW-CV 13.7 % (10.5-14.5); WBC 10.8 thou/uL (4.0-11.0)
[2020-10-17 22:52] LABS: CALCIUM 7.7 mg/dL (8.5-10.1); CREATININE 1.6 mg/dL (0.6-1.3)
[2020-10-17 22:53] LABS: ACETAMINOPHEN < 2 ug/mL (10-30); SALICYLATE < 2.8 mg/dL (2.8-20.0)
[2020-10-17 22:54] LABS: ALCOHOL < 10 mg/dL (<10)
[2020-10-17 22:57] LABS: ALBUMIN 1.9 g/dL (3.4-5.0); TOTAL BILIRUBIN 0.6 mg/dL (<0.1-1.0); TOTAL PROTEIN 5.7 g/dL (6.4-8.2)
[2020-10-17 22:59] LABS: POTASSIUM 2.6 mmol/L (3.5-5.1)
[2020-10-18 01:04] LABS: URINE BILIRUBIN NEGATIVE (Negative); URINE BLOOD NEGATIVE (Negative); URINE CLARITY CLEAR; URINE COLOR YELLOW; URINE GLUCOSE-RANDOM NEGATIVE (Negative); URINE KETONES TRACE (Negative); URINE LEUKOCYTES NEGATIVE (Negative); URINE NITRITE NEGATIVE (Negative); URINE PROTEIN NEGATIVE (Negative); URINE SPECIFIC GRAVITY >= 1.030 (1.005-1.030); URINE UROBILINOGEN 0.2 E.U./dl (0.2-1.0)
[2020-10-18 01:28] LABS: AMP/METHAMP Negative (Negative); BARBITURATES Negative (Negative); BENZODIAZEPINES Negative (Negative); METHADONE Negative (Negative); OPIATES Negative (Negative); PCP Negative (Negative); THC POSITIVE (Negative)
[2020-10-18 01:37] LABS: COCAINE Negative (Negative)
[2020-10-18 03:36] LABS: MAGNESIUM 1.9 mg/dL (1.8-2.4); PHOSPHORUS* 5.6 mg/dL (2.5-4.9)
--- NOTE | 2020-10-18 04:24 | NUR ---
PT VERBALLY AGGRESSIVE WITH STAFF. PT STATES "JUST LET ME , STOP TOUCHING ME. GET OUT. I DON'T WANT ANYONE ELSE COMING IN THIS ROOM". PT LEFT TO REST IN THE BED. PT IV NOT INFUSING AT THIS TIME. PT WOULD NOT LET STAFF ADJUST IV TO INFUSE.
[2020-10-18 05:18] VITALS: BP 128/81
[2020-10-18 05:30] VITALS: BP 131/76
--- NOTE | 2020-10-18 05:30 | NUR ---
RECEIVED REPORT FROM ER, PT TO FLOOR PER CART. AWAKE AND ALERT, PT VERY UNCOOPERATIVE, COMBATIVE-HITTING OUT, REFUSING TO ANSWER QUESTIONS INITALLY. ABLE TO ANSWER ORIENTATION QUESTIONS CORRECTLY THEN SAID I WAS DISRECPECTFUL BECAUSE I WAS ASKING STUPID QUESTIONS TO HER. INGOT PASSER APPLIED SHOWING SR. SEE ADMISSION ASSESSMENT AND HX. WILL NOT ATTEMPT TO RECONCIL MEDS AT THIS TIME.
[2020-10-18 08:48] VITALS: BP 128/80
--- NOTE | 2020-10-18 10:58 | EKG ---
[place] [address] ELECTROCARDIOGRAM REPORT Name: KESHAV PINK Room: [address]#: [id number] Admission: 10/18/20 Attend Phys: Ra Aguirre Discharge: Date of : 61 Date of Service: 10/17/20 2353 Report #: [id number] THIS REPORT FOR: //name// [facility] ED Test Date: 2020-10-17 Test Time: 23:53:35 Pat Name: KESHAV PINK Department: Room: [facility] Gender: F Business Agent: LUC[place] : 1965 Requested By: Tran Blood Order Number: [id number] MD: Miguelito Love Measurements Intervals [place] Rate: 88 P: 64 CO: 149 QRS: -49 QRSD: 96 T: 19 QT: 410 QTc: 496 Interpretive Statements Sinus rhythm Left anterior fascicular block Abnormal R-wave progression, late transition Borderline T wave abnormalities Borderline prolonged QT interval Compared to ECG 09/06/2020 15:23:28 Left anterior fascicular block now present T-wave abnormality still present Electronically Signed On 10-18-2020 10:57:50 CDT by Miguelito Love [email or web address] <ELECTRONICALLY SIGNED> By: Miguelito Love MD, [facility] 10/18/20 1057 52 235 Miguelito Love MD, [facility] /EPI
[2020-10-18 11:32] LABS: CALCIUM 7.9 mg/dL (8.5-10.1); CREATININE 1.3 mg/dL (0.6-1.3)
[2020-10-18 11:34] LABS: POTASSIUM 3.9 mmol/L (3.5-5.1)
[2020-10-18 12:00] VITALS: BP 123/75
--- NOTE | 2020-10-18 13:10 | NUR ---
CM ASSESSMENT: CM ATTEMPTED TO SPEAK TO THE PT TO COMPLETE CM ASSESSMENT. PT RESTING IN BED AND TURNS TOWARDS WALL AND CLOSES HER EYES WHEN THIS CM ATTEMPTED TO ASK QUESTIONS. CM CONTACTED PT'S DTR KEITH AND SHE AGREES TO ASSIST WITH CM ASSESSMENT. PT'S DTR INFORMS THAT THE PT IS NORMALLY ACTIVE, INDEPENDENT WITH ADL'S, AND DRIVES. PT USES 0 DME. PT HAS 0 HX OF HH OR SNF. PT IS A RETIRED FOOD SERVICE TRAY ATTENDANT. PT'S DTR INFORMS THAT SHE HAD ONLY RECENTLY FOUND OUT ABOUT THE PT'S MENTAL HEALTH ISSUES. PT'S DTR INFORMS THAT HTE PT HAS A PSYCHIATRIST THAT SHE SEES AT LEAST MONTHLY AND IS TAKING SOME PSYCH MEDS. PT HAS A HX OF ANXIETY AND DEPRESSION. PT ALSO HAS A PAST HX OF REHAB FOR OPIOD DEPENDENCE 10 YRS AGO. PHYSICIAN INFORMS OF PLAN TO TX PT TO [facility] PENDING TELE PSYCH EVAL AND INPT PSYCH ACCEPTANCE. PT'S DTR HAS BEEN INFORMED OF THIS AND IS AWAITING CM UPDATE ON D/C PLAN. CM WILL REMAIN AVAILABLE TO ASSIST AND FOLLOW NEEDED.
[2020-10-18 16:00] VITALS: BP 115/73
--- NOTE | 2020-10-18 18:30 | NUR ---
Pt became beligerent and argumentative in earlier interactions today; pt told this RN to "go to hell" when RN stayed in room waiting for patient to take meds. By evening, pt appeared to be lucid and oriented. Pt inquiring why she was admitted and whether she would be ok to discharge. Pt informed that she was at home and had not answered her phone calls form parents on Sunday or Sunday, and she was found to be in Altered Mental Status when a well-check was done Sunday; and pt was then brought by EMS to [place]. Also told her that her K+ level was critically low. Pt's dtr, Ludy, was updated earlier regarding status. Tele psych consult was ordered, but did not occur this shift as expected (was told it would be between 1200 and 1700). VSS. Will continue to monitor.
[2020-10-18 20:00] VITALS: BP 123/79
--- NOTE | 2020-10-18 20:00 | NUR ---
RECEIVED REPORT AND ASSUMED CARE OF PT, ASSESSEMT COMPLETED. PT STARTED OUT PLEASANT BUT THEN BECAME DEFENSIVE. ABRUPTLY STATES "I DON'T WANT ANYONE TOUCHING ME". EXPLAINED NEED FOR ASSESSMENT. THEN WHEN DISCUSSING HOME MEDS SHE STATED "THE DOCTOR IS GOING TO GET AWAY WITH THIS AND MY MEDS". QUESTIONED FURTHER BUT WOULD NOT ANSWER. ALSO STATED SHE WANTED HER DOOR SHUT AND WAS TOLD NO THAT NEEDED TO WATCH HER AND SAID "ME OR THEM". BED ALARM ON. TELEMETRY ON SHOWING SR. WILL CONT TO MONITOR AND ASSIST NEEDED.
[2020-10-19] VITALS (7 sets, daily range): BP systolic 90–136; BP diastolic 57–89
--- NOTE | 2020-10-19 06:26 | NUR ---
PT INCONT OF BOWEL AND BLADDER BUT ALSO ASSISTED TO BR. TOOK AM MEDS AND WAS PLEASANT, SAID THANK YOU AND THEN ASKED WHERE SHE WAS. REASSURANCE GIVEN. ASSESSMENT UNCHANGED. HS GOALS OF REST AND SAFETY ACHIEVED. HOURLY ROUNDING OBSERVED.
--- NOTE | 2020-10-19 10:59 | NUR ---
ASSUMED CARE OF PT THIS AM AROUND 0715- EMPLOYMENT SECURITY OFFICER IN PLACE ORDERED, TRACING SR- UPON ASSESSMENT PT NOTED TO BE RESTING IN BED- PT DROSWY, BUT ARROUSABLE- WITHDRAWN AND MENDIOLA AT TIMES NOTED- A&O X4-INCONT OF B/B- ASSIST X1 WITH TRANSFERS FOR SAFETY- LCTA, RESP EVEN AND UN-LABORED- ABD SOFT/ROUND/NON-TENDER, BS X4 QUADS- LAST BM REPORTED 10/18/20- IV NOTED TO LEFT AC INTACT AND SL, IVF NOTED TO BE D/C'D THIS AM- +1 BLE EDEMA NOTED- TELE PYCH COMPLETED THIS AM ORDERED- BACLOFEN NOTED TO BE D/C'D R/T DROWSINESS THIS AM- CALL LIGHT AND PERSONAL BELONGINGS WITH IN REACH- BED ALARM IN PLACE AND WORKING FOR PT SAFETY/NEEDS- HOURLY ROUNDS IN PLACE R/T SAFETY/NEEDS- ALL NEEDS MET AT THIS TIME
[2020-10-19] MEDS ORDERED: KLOR-CON M2020 MEQ PO (11:23)
[2020-10-19] MEDS ORDERED: OXTELLAR XR300 MG PO (11:24)
[2020-10-19] MEDS ORDERED: BALANCED B-100100 MG PO (11:25)
--- NOTE | 2020-10-19 14:01 | NUR ---
PLAN OF CARE: CM INFORMED BY THE PHYSICIAN THAT PLAN REMAINS FOR THE PT TO D/C TO [facility] AT [facility] PENDING ACCEPTANCE. CM SPOKE TO ALMAZ WITH ADMISSIONS AND SHE INFORMS THAT THE PT HAS BEEN ACCEPTED. HOWEVER THEY DO NOT HAVE A BED AVAILABLE AT THIS TIME, BUT WILL HAVE A BED TOMORROW. CM TO FAX AFFADAVITS AND TELE PSYCH EVAL WHEN AVAILABLE. CM WILL REMAIN AVAILABLE TO ASSIST AND FOLLOW NEEDED. [facility] PHONE: [phone] FAX: [phone]
[2020-10-20 04:00] VITALS: BP 135/88
--- NOTE | 2020-10-20 04:23 | NUR ---
ASSUMED PT CARE AT APPROX. 1915. PT IS A/OX4. PT IS TRACING SR ON THE CONSUMER CREDIT COUNSELOR. VSS. PT IS ON RA. MEDICATIONS ADMINISTERED PRESCRIBED. SEE EMAR. PT VERBALIZED THAT SHE WAS UPSET FOR BEING HOSPITALIZED AND "SHE DID NOT UNDERSTAND WHY SHE STILL NEEDED TO BE HERE." THIS RN SPOKE WITH PT'S DAUGHTER KEITH. PT'S DAUGHTER ASKED ABOUT "THE PLAN FOR HER MOM". PROVIDERS NOTED INDICATED THE PATIENT HAD AGREED TO TRANSFER TO [facility] FOR FURTHER CARE. PT DENIED THIS AGREEMENT WHILE RN AT BEDSIDE. PT DAUGHTER ON CELL PHONE REASSURING HER MOM THAT "SHE NEEDS TO GET SOME HELP BECAUSE SHE WAS FOUND AT HOME ON THE FLOOR UNRESPONISIVE." PT RESTED DURING THE NIGHT. NO C/O VOICED. NO ACUTE CHANGES. FALL PRECAUTIONS IN PLACE FOR SAFETY. CALL LIGHT WITHIN REACH. ASSESSMENTS COMPLETE CHARTED. HOURLY ROUNDS COMPLETED. WILL CONT. TO MONITOR.
[2020-10-20 08:00] VITALS: BP 114/78
[2020-10-20] MEDS ORDERED: TRILEPTAL300 MG PO (10:09)
[2020-10-20] MEDS ORDERED: AMITRIPTYLINE H25 M2 PO (10:09)
[2020-10-20 11:55] VITALS: BP 110/68
[2020-10-20 13:39] VITALS: BP 110/68
[2020-10-20 13:59] VITALS: BP 110/68
[2020-10-20 14:46] VITALS: BP 110/68
--- NOTE | 2020-10-20 15:19 | NUR ---
RECEIVED REPORT AROUND 0715. ASSUMED CARE. VS AND ASSESSMENT CHARTED. IV INTACT. HEART MONITOR ATTACHED AT SR. PT REFUSED TO GO TO [facility] THIS SHIFT. PT GOING HOME WITH HOME HEALTH. DISCHARGE ORDERS RECEIVED. MEDS GIVEN PER JUN. HOURLY ROUNDING PERFORMED. IV TAKEN OUT. HEART MONITOR OFF. PT LEFT UNIT VIA WHEEL CHAIR WITH NURSING STAFF AND ALL BELONGINGS AT 1520.
--- NOTE | 2020-10-20 15:47 | NUR ---
PHYSICIAN INFORMS OF PLAN FOR THE PT TO D.C. HOME TODAY WITH HH. PHYSICIAN INFORMS THAT THE PT IS MORE ALERT AND ORIENTED AND DECLINING TRANSFER TO IN [facility]. CM SPOKE TO PT AND HER DTR TO DISCUSS THIS AND THEY ARE IN AGREEMENT. PT INFORMS THAT SHE HAS A PSYCHIATRIST AT [facility] IN [place] AND THAT SHE WILL F/U WITH THEM. CM CALLED AND ARRANGED THE PT AN APPOIINTMENT WITH HER PSYCHIATRIST BRANDON MEDEIROS FOR THE EARLIEST AVAILABLE APPOINTMENT 11/22/20 FOR 11:15AM. PT ALSO AGREEED TO HAVE HH WITH [facility]. CM FAXED PT'S CLINCIAL INFO AND D/C ORDERS TO [facility]. CM WILL REMAIN AVAILABLE TO ASSIST AND FOLLOW NEEDED. [facility] PHONE: [phone] FAX: [phone] [facility] PHONE: [phone] FAX: [phone]
== END 2020-10-20 15:20 | disposition home health service (06) ==
LOC: M.ERS 21:41 → M.TBA-ER 10-18 03:23 → M.2W 10-18 03:23
PROVIDERS: Personal Emergency Response Attendant; ADMIT Internal Medicine; ATTEND Internal Medicine
DX: F29 Unspecified psychosis not due to a substance or known physiological condition (principal); Z20.822 Contact with and (suspected) exposure to COVID-19; R41.82 Altered mental status, unspecified; F41.9 Anxiety disorder, unspecified; F32.9 Major depressive disorder, single episode, unspecified; I10 Essential (primary) hypertension; G89.29 Other chronic pain; M54.5 Low back pain; R42 Dizziness and giddiness; E87.6 Hypokalemia; G47.00 Insomnia, unspecified; R44.1 Visual hallucinations; F12.90 Cannabis use, unspecified, uncomplicated; G93.41 Metabolic encephalopathy; I12.9 Hypertensive chronic kidney disease with stage 1 through stage 4 chronic kidney disease, or unspecified chronic kidney disease; N18.9 Chronic kidney disease, unspecified; Z98.890 Other specified postprocedural states; Z90.49 Acquired absence of other specified parts of digestive tract; Z90.710 Acquired absence of both cervix and uterus

== ENCOUNTER 2020-11-22 07:12 | Emergency (ER) | payer OTHER ==
[~2020-11-22] VITALS: Ht 160 cm; Wt 51.3 kg
[~2020-11-22 07:12] MED LIST changes: +BALANCED B-100100 MG PO; +KLOR-CON M2020 MEQ PO; +OXTELLAR XR300 MG PO; +TRILEPTAL300 MG PO
[2020-11-22 09:52] VITALS: BP 122/68
== END 2020-11-22 09:53 | disposition home or self-care (01) ==
LOC: M.ERS 07:12
DX: S63.284A Dislocation of proximal interphalangeal joint of right ring finger, initial encounter (principal); S63.591A Other specified sprain of right wrist, initial encounter; K21.9 Gastro-esophageal reflux disease without esophagitis; Z98.890 Other specified postprocedural states; Z98.51 Tubal ligation status; Z90.710 Acquired absence of both cervix and uterus; Z86.14 Personal history of Methicillin resistant Staphylococcus aureus infection; Z96.653 Presence of artificial knee joint, bilateral; Z88.7 Allergy status to serum and vaccine; Z88.1 Allergy status to other antibiotic agents; Z88.0 Allergy status to penicillin; Z88.8 Allergy status to other drugs, medicaments and biological substances; Z91.012 Allergy to eggs; W01.0XXA Fall on same level from slipping, tripping and stumbling without subsequent striking against object, initial encounter; Y93.89 Activity, other specified; Y92.89 Other specified places as the place of occurrence of the external cause; Y99.8 Other external cause status

== ENCOUNTER 2021-01-12 21:40 | Emergency (ER) | payer OTHER ==
[~2021-01-12] VITALS: Ht 160 cm; Wt 50.4 kg
[2021-01-13 00:41] LABS: ABSOLUTE LYMPHOCYTES 1.8 thou/uL (0.8-5.3); ABSOLUTE MONOCYTES 0.7 thou/uL (0.0-1.2); ABSOLUTE NEUTROPHILS 4.2 thou/uL (1.6-8.1); BASOPHILS 0.3 %; EOSINOPHILS 0.5 %; HEMATOCRIT 30.1 % (37.0-47.0); HEMOGLOBIN 10.3 gm/dL (12.0-15.0); LYMPHOCYTES 27.2 %; MCH 33.3 pg (26.0-34.0); MCHC 34.1 g/dL (28.0-37.0); MCV 97.7 fL (80.0-100.0); MPV 8.2 fl. (7.2-11.1); NUCLEATED RBCS 0 /100WBC; PLATELET COUNT* 279 thou/uL (150-400); RBC 3.08 mil/uL (4.20-5.00); RDW-CV 14.7 % (10.5-14.5); WBC 6.7 thou/uL (4.0-11.0)
[2021-01-13 00:53] LABS: CALCIUM 7.7 mg/dL (8.5-10.1); CREATININE 1.2 mg/dL (0.6-1.3)
[2021-01-13 00:54] LABS: ALBUMIN 1.6 g/dL (3.4-5.0); TOTAL BILIRUBIN 0.3 mg/dL (<0.1-1.0); TOTAL PROTEIN 5.4 g/dL (6.4-8.2)
[2021-01-13 01:07] LABS: POTASSIUM 2.9 mmol/L (3.5-5.1)
[2021-01-13 01:25] VITALS: BP 122/81
[2021-01-13] MEDS ORDERED: KLOR-CON 1010 MEQ PO (03:19)
[2021-01-14] MEDS ORDERED: FUROSEMIDE 40 M40 M1 PO (17:16)
[2021-01-14] MEDS ORDERED: BACTRIM DS TAB1 EAC1 PO (18:17)
[2021-01-14] MEDS ORDERED: CEPHALEXIN500 MG PO (18:17)
== END 2021-01-13 03:27 | disposition home or self-care (01) ==
LOC: M.ERS 21:40
PROVIDERS: Emergency Medicine
DX: M79.10 Myalgia, unspecified site (principal); K21.9 Gastro-esophageal reflux disease without esophagitis; E87.6 Hypokalemia; Z98.51 Tubal ligation status; Z90.49 Acquired absence of other specified parts of digestive tract; Z90.710 Acquired absence of both cervix and uterus; Z79.899 Other long term (current) drug therapy; Z88.7 Allergy status to serum and vaccine; Z91.012 Allergy to eggs; Z91.010 Allergy to peanuts; Z88.1 Allergy status to other antibiotic agents; Z88.6 Allergy status to analgesic agent; Z88.5 Allergy status to narcotic agent

== ENCOUNTER 2021-01-14 16:00 | Emergency (ER) | payer OTHER ==
[~2021-01-14] VITALS: Ht 160 cm; Wt 52.6 kg
[~2021-01-14 16:00] MED LIST changes: +KLOR-CON 1010 MEQ PO
[2021-01-14 17:08] LABS: ABSOLUTE LYMPHOCYTES 2.2 thou/uL (0.8-5.3); ABSOLUTE MONOCYTES 0.4 thou/uL (0.0-1.2); ABSOLUTE NEUTROPHILS 4.1 thou/uL (1.6-8.1); BASOPHILS 0.3 %; EOSINOPHILS 0.6 %; HEMATOCRIT 31.5 % (37.0-47.0); HEMOGLOBIN 10.5 gm/dL (12.0-15.0); LYMPHOCYTES 32.1 %; MCHC 33.4 g/dL (28.0-37.0); MCV 98.9 fL (80.0-100.0); MPV 8.7 fl. (7.2-11.1); NUCLEATED RBCS 0 /100WBC; PLATELET COUNT* 314 thou/uL (150-400); RBC 3.19 mil/uL (4.20-5.00); RDW-CV 15.2 % (10.5-14.5); WBC 6.8 thou/uL (4.0-11.0)
[2021-01-14] MEDS ORDERED: FUROSEMIDE 40 M40 M1 PO (17:16)
[2021-01-14 17:31] LABS: CALCIUM 7.7 mg/dL (8.5-10.1); CREATININE 1.4 mg/dL (0.6-1.3); POTASSIUM 3.5 mmol/L (3.5-5.1)
[2021-01-14 17:35] LABS: ALBUMIN 1.7 g/dL (3.4-5.0); TOTAL BILIRUBIN 0.3 mg/dL (<0.1-1.0); TOTAL PROTEIN 5.8 g/dL (6.4-8.2)
[2021-01-14] MEDS ORDERED: BACTRIM DS TAB1 EAC1 PO (18:17)
[2021-01-14] MEDS ORDERED: CEPHALEXIN500 MG PO (18:17)
[2021-01-14 19:27] VITALS: BP 121/65
== END 2021-01-14 19:28 | disposition left against medical advice (07) ==
LOC: M.ERS 16:00
PROVIDERS: Physician Assistant
DX: R60.0 Localized edema (principal); K21.9 Gastro-esophageal reflux disease without esophagitis; Z98.890 Other specified postprocedural states; Z98.51 Tubal ligation status; Z90.711 Acquired absence of uterus with remaining cervical stump; Z98.84 Bariatric surgery status; Z96.652 Presence of left artificial knee joint; Z96.651 Presence of right artificial knee joint; Z79.899 Other long term (current) drug therapy; Z88.8 Allergy status to other drugs, medicaments and biological substances; Z88.1 Allergy status to other antibiotic agents; Z91.012 Allergy to eggs; Z88.5 Allergy status to narcotic agent; Z88.0 Allergy status to penicillin; Z88.7 Allergy status to serum and vaccine